=== PATIENT | female | born 1945 | race Caucasian/White ===

== ENCOUNTER 2018-10-23 13:15 | Inpatient (IN) | payer MEDICARE ==
[2018-10-23] VITALS (316 sets, daily range): BP systolic 94–116; BP diastolic 67–69; PULSE 114–131; TEMP 97.4–98.3; O2SAT 88–100
[~2018-10-23] VITALS: Ht 154.9 cm; Wt 43.0 kg
[~2018-10-23 13:15] MED LIST: 00186-0370-20 IH; HCTZ 25MG TAB25 MG PO; PRINIVIL20 MG PO; PRINZIDE 25 MG-1 TAB PO; RT SPIRIVA18 MCG IH; VENTOLIN0.09 MG IH
[2018-10-23 13:32] LABS: BASO # 0.1 (0.0-0.2); BASO % 0.4 % (0.0-2.0); EOS # 0.1 (0.0-0.7); GRAN # 8.7 (1.4-6.5); GRAN % 70.4 % (42.2-75.2); HEMATOCRIT 39.9 % (37.0-47.0); HEMOGLOBIN 12.4 g/dl (12.5-16.0); LYMPH # 2.8 (1.2-3.4); LYMPH % 22.2 % (20.0-51.0); MEAN CELL VOLUME 99 fl (80.0-100.0); MEAN CORPUSCULAR HEMOGLOBIN 31 pg (27.0-31.0); MEAN CORPUSCULAR HGB CONC 31 g/dl (33.0-37.0); MEAN PLATELET VOLUME 9.8 fl (7.4-10.4); MONO # 0.7 (0.1-0.6); MONO % 5.3 % (1.7-9.3); PLATELET COUNT 457 K/mm3 (130-400); RED BLOOD COUNT 4.04 M/mm3 (4.10-5.30); REDCELL DISTRIBUTION WIDTH-CV 13.2 % (11.5-14.5)
[2018-10-23 13:44] LABS: ALBUMIN 3.8 gm/dL (3.5-5.0); BILIRUBIN,TOTAL 0.3 mg/dL (0.0-1.0); CREATININE, serum 0.76 mg/dL (0.52-1.25); MAGNESIUM 1.8 mg/dL (1.6-2.3); POTASSIUM 4.8 mmol/L (3.4-5.0); TOTAL PROTEIN 6.9 gm/dL (6.4-8.2)
[2018-10-23 14:03] LABS: TROPONIN-I 0.115 ng/mL (0.000-0.035)
[2018-10-23] MEDS ORDERED: ATIVAN 0.50.5 MG/TAB PO (14:57)
[2018-10-23 15:00] LABS: ARTERIAL BLD GAS O2 SATURATION 96.4 % (92-100); ARTERIAL BLD GAS TCO2 CT 29.2; ARTERIAL BLOOD GAS HCO3 27.6 meq/L (22-26); ARTERIAL BLOOD GAS PCO2 52.3 mmHg (35-45); ARTERIAL BLOOD GAS PO2 93.3 mmHg (80-100); ARTERIAL BLOOD GAS pH 7.34 (7.35-7.45)
--- NOTE | 2018-10-23 16:00 | NUR ---
Patient arrives to ICU room 5 at approx 1530. She has labored pursed lip breathing. Lung sounds diminished. Left chest tube in place. Patient settled in bed and oriented to room. Call Light within reach. Dr. Brady here to see her.
--- NOTE | 2018-10-23 18:11 | NUR ---
UPDATE GIVEN TO SONSUHA. PLAN OF CARE REVIEWED. QUESTIONS ANSWERED.
--- NOTE | 2018-10-23 19:15 | NUR ---
Bedside report received from LUIS F Foster. Chest tube site assessed and reviewed. Transfer of care at this time.
--- NOTE | 2018-10-23 19:25 | NUR ---
REPORT GIVEN TO LUIS F PINEDA. PLAN OF CARE DISCUSSED. CARE TURNED OVER AT THIS TIME.
--- NOTE | 2018-10-23 20:00 | NUR ---
Assessment complete at this time. Assessment reveals diminished lung sounds as well as some small amount of subcutaneous emphysema posterior to the left chest to and around the chest tube site. Patient has complaints of pain rated 4/10 at the site, but is not requesting pain medications at this time. Patient was unable to eat her soup or crackers due to shaking of her hands, was able to drink some broth and drank all of her boost supplement. Patient appears anxious and asks lots of questions. Answered all of her questions to the best of my knowledge. Provided warm blankets for comfort. No further needs at this time. Will continue to monitor. Call light within reach.
--- NOTE | 2018-10-23 20:40 | NUR ---
Patient has complaints of sudden onset of nausea after having inhlaer from RT. Provided basin and zofran. After a few minutes nausea subsided. Patient said she had a similar instance this morning around 11am. Patient has no other needs at this time. Will continue to monitor. Call light within reach as well as basin.
--- NOTE | 2018-10-23 22:35 | NUR ---
Patient becomes nauseated again at this time. She dry heaves for several minutes with no emesis. After a few minutes symptoms subside and she is no longer nauseated. She appears to become nauseous with movement of the HOB up. Dentures and partials removed and cleaned. Left in denture cup on the counter. Patient says she is not having any pain at this time, only mild discomfort at the chest tube site. No other needs at this time. Will continue to monitor. Call light within reach.
[2018-10-24] VITALS (481 sets, daily range): BP systolic 100–122; BP diastolic 53–72; PULSE 92–108; TEMP 97.4–98.3; O2SAT 65–100
--- NOTE | 2018-10-24 | NUR ---
Patient resting in bed at this time. No shortness of breath or distress at this time. Complaints of mild pain at the chest tube insertion site, but does not want pain meds for it right now. Patient has not had anymore nausea since the last episode. Patient has no further needs at this time. Will continue to monitor. Call light within reach.
--- NOTE | 2018-10-24 01:18 | NUR ---
Patient had another sudden onset of nausea with dry heaves. No emesis produced. Nausea passed on its own after a few minutes. Patient states she isnt having any pain and is only having an intermittent headache. Assisted with sips of water. Repositioned for comfort. Will continue to monitor. Call light within reach.
[2018-10-24 05:11] LABS: GRAN # 7.7 (1.4-6.5); GRAN % 92.9 % (42.2-75.2); LYMPH # 0.4 (1.2-3.4); LYMPH % 4.7 % (20.0-51.0); MEAN CELL VOLUME 96 fl (80.0-100.0); MEAN CORPUSCULAR HGB CONC 32 g/dl (33.0-37.0); MEAN PLATELET VOLUME 9.5 fl (7.4-10.4); MONO # 0.2 (0.1-0.6); MONO % 1.8 % (1.7-9.3); RED BLOOD COUNT 3.34 M/mm3 (4.10-5.30); REDCELL DISTRIBUTION WIDTH-CV 13.3 % (11.5-14.5)
[2018-10-24 05:15] LABS: HEMATOCRIT 32.1 % (37.0-47.0); HEMOGLOBIN 10.4 g/dl (12.5-16.0); MEAN CORPUSCULAR HEMOGLOBIN 31 pg (27.0-31.0); PLATELET COUNT 288 K/mm3 (130-400)
[2018-10-24 05:24] LABS: ALBUMIN 3.1 gm/dL (3.5-5.0); BILIRUBIN,TOTAL 0.3 mg/dL (0.0-1.0); CALCIUM 9.1 mg/dL (8.4-10.2); CREATININE, serum 0.75 mg/dL (0.52-1.25); POTASSIUM 5.3 mmol/L (3.4-5.0); TOTAL PROTEIN 5.7 gm/dL (6.4-8.2)
[2018-10-24 05:37] LABS: BILIRUBIN UNCONJUGATED 0.2 mg/dL (0.0-1.1)
[2018-10-24 05:39] LABS: BILIRUBIN,DIRECT 0.2 mg/dL (0.0-0.4)
[2018-10-24 05:41] LABS: TROPONIN-I 1.46 ng/mL (0.000-0.035)
[2018-10-24 05:54] LABS: TSH w REFLEX 0.478 uIU/mL (0.465-4.680)
[2018-10-24 05:56] LABS: ANISOCYTOSIS 1+; BAND 14 % (0-10); HYPOCHROMIA 1+; LYMPHOCYTE 5 % (20.0-51.0); NEUTROPHILS 80 % (42.0-75.2); PLATELET ESTIMATE NORMAL (NORMAL); POIKILOCYTOSIS 1+
--- NOTE | 2018-10-24 07:18 | NUR ---
Bedside report given to LUIS F Hernandez and LUIS F Mitchell.
--- NOTE | 2018-10-24 07:20 | NUR ---
examined patient. Removed patient from chest tube suction. Answered patients questions. Will continue to monitor patients condition throughout shift.
--- NOTE | 2018-10-24 07:25 | NUR ---
Received bedside report from LUIS F Donahue. Patient was awake sitting in bed. Fluids varified. Chest tube site examined. Will continue to monitor patient.
--- NOTE | 2018-10-24 08:50 | NUR ---
Dr. Jhaveri visited with patient. Discussed the risk of developing another tension pneumo. Answered patiens questions. Will continue to monitor patient.
--- NOTE | 2018-10-24 09:36 | NUR ---
Initial visit; Patient thanked Filter Plant Operator for looking in on her and offering prayer and God's blessings.
[2018-10-24 10:06] LABS: ARTERIAL BLD GAS O2 SATURATION 93.9 % (92-100); ARTERIAL BLD GAS TCO2 CT 29.7; ARTERIAL BLOOD GAS BASE EXCESS 3.8 (-2-2); ARTERIAL BLOOD GAS HCO3 28.4 meq/L (22-26); ARTERIAL BLOOD GAS PCO2 42.8 mmHg (35-45); ARTERIAL BLOOD GAS PO2 68.4 mmHg (80-100); ARTERIAL BLOOD GAS pH 7.44 (7.35-7.45)
--- NOTE | 2018-10-24 10:26 | NUR ---
SW attended clinical rounds. The patient is to transfer up to the medical floor today, 10/24. CHELSI then followed up with the patient and patient's nephew, Topher. The patient lives alone in [place]. She states that her son, Dagoberto, lives in [place]. She reports needing assistance with bathing and has a walker and home oxygen through [employer]. She reports having services through [facility] and that they help her with bathing. SW contacted Omkar at [facility] and confirmed that the patient has private duty care services through them. The patient's PCP is Dr. Michael Molina and she receives her medications by delivery through [facility]. She reports no difficulties obtaining her meds. The patient's nephew, Topher, provided CHELSI with a copy of the patient's DPOA-HC, Living Will, and DNR. SW placed the copies in the patient's chart. The patient reports that at this time, she does not feel comfortable returning home. She reports that she would like to discuss options with her son when he arrives from [place]. PT/OT have been ordered. SW to continue to follow.
--- NOTE | 2018-10-24 13:17 | NUR ---
CALLED AND GAVE REPORT TO LUIS F BATEMAN.
--- NOTE | 2018-10-24 13:30 | NUR ---
TRANSFERED PATIENT TO SURGICAL ROOM. PATIENT HAD ALL BELONGINGS. PATIENT WAS TRANSFERED VIA SURGICAL BED.
--- NOTE | 2018-10-24 14:00 | NUR ---
Patient arrived via bed from ICU. She is resting comfortably at this time. Dressing to chest tube intact. The heimlich is hooked up to a drainage container. NO drainage noted. Oriented patient to room. No questions verbalized. No other changes at this time. Call light within reach.
[2018-10-24 14:49] LABS: CALCIUM 9.4 mg/dL (8.4-10.2); CREATININE, serum 0.76 mg/dL (0.52-1.25); POTASSIUM 4.9 mmol/L (3.4-5.0)
[2018-10-24 17:44] LABS: INR 0.9 (0.8-3.0); PROTHROMBIN TIME 10.6 SECONDS (9.7-12.8)
[2018-10-24 17:48] LABS: CALCIUM 9.4 mg/dL (8.4-10.2); CREATININE, serum 0.78 mg/dL (0.52-1.25); POTASSIUM 4.6 mmol/L (3.4-5.0)
--- NOTE | 2018-10-24 18:30 | NUR ---
Patient assisted to bedside commode. Dyspnea with exertion. Allyven foam placed to spine & coccyx. Reddness noted.
--- NOTE | 2018-10-24 19:00 | NUR ---
Patient was able to get up to the BSC with staff assitance. Foam pads placed to her back and coccyx area to help keep her from getting break down. Placed an air mattress over her bed as well. Patient needs encouragement to eat more, she had some ensure for dinner but did not want to eat. No other changes at this time. Call light within reach.
--- NOTE | 2018-10-24 20:15 | NUR ---
Pt resting in bed watching TV, some C/O pain, left Pt call light in reach, bed in lowest position.
[2018-10-25] VITALS (11 sets, daily range): BP systolic 114–150; BP diastolic 55–98; PULSE 86–109; TEMP 97.5–98.3
--- NOTE | 2018-10-25 05:33 | NUR ---
Pt has been sleeping during the night, has some C/O pain but does not want medication. VS have been stable.
[2018-10-25 05:58] LABS: BASO % 0.1 % (0.0-2.0); GRAN # 12.6 (1.4-6.5); LYMPH # 0.6 (1.2-3.4); LYMPH % 4.4 % (20.0-51.0); MEAN CELL VOLUME 97 fl (80.0-100.0); MEAN CORPUSCULAR HGB CONC 32 g/dl (33.0-37.0); MEAN PLATELET VOLUME 10.8 fl (7.4-10.4); PLATELET COUNT 288 K/mm3 (130-400); RED BLOOD COUNT 3.17 M/mm3 (4.10-5.30); REDCELL DISTRIBUTION WIDTH-CV 13.4 % (11.5-14.5)
[2018-10-25 06:11] LABS: CALCIUM 9.1 mg/dL (8.4-10.2); CREATININE, serum 0.76 mg/dL (0.52-1.25); HEMATOCRIT 30.8 % (37.0-47.0); HEMOGLOBIN 9.8 g/dl (12.5-16.0); MEAN CORPUSCULAR HEMOGLOBIN 31 pg (27.0-31.0); POTASSIUM 4.6 mmol/L (3.4-5.0)
--- NOTE | 2018-10-25 07:00 | NUR ---
Report on to LUIS F Townsend. Pt resting in bed. VS obtained BP 123/93, diminished breath sounds left lobes. Stridor present in right lobes, reported findings to LUIS F Townsend. Pt reports of being anxious. Chest tube to drainage, site CDI, O2 administered via nasal cannula at 2L.
--- NOTE | 2018-10-25 10:50 | NUR ---
Patient is going down for her DOYLE procedure. Report given to Sherly, the radiology nurse. Patient was transferred via the bed. No complaints of pain. She was given ativan earlier for anxiety. Her chest tube was taken off of suction for the transfer. No other changes at this time. Chart off the floor with patient. Consent signed and on the chart.
--- NOTE | 2018-10-25 11:00 | NUR ---
Pt. left unit to get DOYLE.
--- NOTE | 2018-10-25 11:27 | NUR ---
SW attended clinical rounds to discuss discharge planning. SW informed patient that post acute rehab has been recommended. SW inquired about patient choices. Patient's 1st choice is [facility] and 2nd choice is [facility]. SW will fax referral to both places.
--- NOTE | 2018-10-25 11:32 | NUR ---
Report off to LUIS F Townsend
--- NOTE | 2018-10-25 14:43 | NUR ---
SW spoke with Naila from [facility]. Patient has been accepted for skilled.
--- NOTE | 2018-10-25 18:30 | NUR ---
Patient has been doing ok today. Minimal complaints of pain. She stated she is having some anxiety and increased pain. Offered some ultram at this time but she refused. She did want her ativan at this time. Chest tube continues to hooked up to suction. Oxygen on at 2L/min per NC. She also requested a breathing treatment. No other changes at this time. Call light within reach.
--- NOTE | 2018-10-25 21:33 | NUR ---
Shift assessment complete. Patient ambulated to BSC with assist x1. C/o 5/10 pain, prn pain medication given. Chest tube dressing dry/.intact, low-continuous suction. Dentures brushed per pt request. Denies further needs, will continue to assess.
[2018-10-26] VITALS (7 sets, daily range): BP systolic 102–137; BP diastolic 49–58; PULSE 76–106; TEMP 96.8–98.3
[2018-10-26 06:54] LABS: BASO % 0.1 % (0.0-2.0); GRAN # 8.3 (1.4-6.5); GRAN % 87.4 % (42.2-75.2); LYMPH # 0.7 (1.2-3.4); LYMPH % 7.5 % (20.0-51.0); MEAN CELL VOLUME 96 fl (80.0-100.0); MEAN CORPUSCULAR HEMOGLOBIN 31 pg (27.0-31.0); MEAN CORPUSCULAR HGB CONC 32 g/dl (33.0-37.0); MONO # 0.4 (0.1-0.6); MONO % 4.7 % (1.7-9.3); PLATELET COUNT 272 K/mm3 (130-400); RED BLOOD COUNT 3.26 M/mm3 (4.10-5.30); REDCELL DISTRIBUTION WIDTH-CV 13.5 % (11.5-14.5)
[2018-10-26 06:58] LABS: HEMATOCRIT 31.3 % (37.0-47.0)
--- NOTE | 2018-10-26 07:00 | NUR ---
Report on to LUIS F Ordoñez.
[2018-10-26 07:11] LABS: CALCIUM 8.8 mg/dL (8.4-10.2); CREATININE, serum 0.72 mg/dL (0.52-1.25); POTASSIUM 4.6 mmol/L (3.4-5.0)
--- NOTE | 2018-10-26 07:15 | NUR ---
Pt. in bed resting, 02 administered via nasal cannula @ 1L, states she feels like she can't breathe, O2 sat @ 97%. Chest tube on low continuous suction. Pt c/o nausea. Shift assessment completed, stridor in right upper lobe, crepitis present in back upper flank. Chest tube site CDI. SCD's on.
--- NOTE | 2018-10-26 08:00 | NUR ---
Assessed pt.'s nausea after been given Ativan, still feeling nauseous, offered a Pepsi to see if carbonation will help.
--- NOTE | 2018-10-26 08:15 | NUR ---
Patient in bed resting. Alert and oriented x 2. Shift assessment complete. Patient states mild nausea this AM. Left chest tube to continuous suction with serosanguinous drainage present in container. Gauze and foam dressing to site is CDI. Denies pain at this time. Denies further needs at this time.
--- NOTE | 2018-10-26 11:26 | NUR ---
Pt. transferred to commode, bed bath given while up, tranferred to chair, resting. Call light in reach. Report off to LUIS F Ordoñez.
--- NOTE | 2018-10-26 18:23 | NUR ---
Patient in bed resting. Has been up in recliner most of the day. x1 assist when out of bed. Denies pain at this time. Denies further needs at this time. Will report off to cut order hand.
--- NOTE | 2018-10-26 22:00 | NUR ---
PT HAD C/O NAUSEA AND FEELING AXIOUS AT HS, REQUESTED SOME MEDICAITONS, THIS NURSE PROVIDED PT WITH PRN ATIVAN AND ZOFRAN. PT HAS ASKED THIS NURSE ABOUT GETTING A BREATHING TREATMENT, CALLED RT, RT CAME DOWN SHORTLY AFTER AND PROVIDED PT WITH A BREATHING TX. NO OTHER ISSUES OR CONSERNS VOICED AT THIS TIME.
[2018-10-27] VITALS (370 sets, daily range): BP systolic 94–184; BP diastolic 51–99; PULSE 82–154; TEMP 97.3–98.1; O2SAT 84–100
--- NOTE | 2018-10-27 | NUR ---
THE SUCTION ON PT CHEST TUBE WAS TURNED OFF BY THIS NURSE PER DOCTORS ORDER. MINIMAL RED COLORED DRAINAGE NOTED IN CHEST TUBE CHAMBER.
[2018-10-27 05:40] LABS: GRAN % 80.7 % (42.2-75.2); LYMPH # 0.9 (1.2-3.4); LYMPH % 12.3 % (20.0-51.0); MEAN CELL VOLUME 95 fl (80.0-100.0); MEAN CORPUSCULAR HGB CONC 32 g/dl (33.0-37.0); MEAN PLATELET VOLUME 10.5 fl (7.4-10.4); MONO # 0.5 (0.1-0.6); MONO % 6.7 % (1.7-9.3); PLATELET COUNT 256 K/mm3 (130-400); RED BLOOD COUNT 3.25 M/mm3 (4.10-5.30); REDCELL DISTRIBUTION WIDTH-CV 13.3 % (11.5-14.5)
[2018-10-27 05:43] LABS: HEMATOCRIT 30.7 % (37.0-47.0); HEMOGLOBIN 9.9 g/dl (12.5-16.0); MEAN CORPUSCULAR HEMOGLOBIN 30 pg (27.0-31.0)
[2018-10-27 05:45] LABS: CALCIUM 8.6 mg/dL (8.4-10.2); CREATININE, serum 0.7 mg/dL (0.52-1.25); POTASSIUM 4.1 mmol/L (3.4-5.0)
--- NOTE | 2018-10-27 06:24 | NUR ---
PT HAD C/O ANXIETY THIS AM AND REQUESTED AN ATIVAN. MED PROVIDED. NO OTHER ISSUES OR CONSERNS VOICED
--- NOTE | 2018-10-27 07:23 | NUR ---
Call from Dr. Rosas to restart suction on chest tube.
--- NOTE | 2018-10-27 07:46 | NUR ---
Pt is lying in bed looking at menu. IV running at 50ml/hr of 0.45% NS and clean, dry, and intact with no signs of inflammation or redness. Chest tube on and is clean, dry, and intact. Assessment as charted. PT reports no pain at this time.
--- NOTE | 2018-10-27 08:43 | NUR ---
Patient in bed eating breakfast. Alert and oriented x3. Shift assessment complete. IV fluids infusing via pump to right forarm. Left chest tube to suction, gauze and foam dressing CDI. Mepilex to midthoracic back and to sacral area. Lung bases diminished. Denies further needs at this time.
--- NOTE | 2018-10-27 10:59 | NUR ---
Hospitalist and care team in to see patient.
--- NOTE | 2018-10-27 11:08 | NUR ---
SW and SW student attended clinical rounds. The patient is to be here over the weekend. A palliative care consult has been ordered. SW contacted and faxed updates to Michelle at [facility]. SW to continue to follow.
--- NOTE | 2018-10-27 12:20 | NUR ---
First visit from the advanced practice rn. No needs right now.
--- NOTE | 2018-10-27 13:33 | NUR ---
Pt was resting in bed this afternoon. No change in status. Pt refused lunch stating, "I had breakfast, so I am not hungry." Pt lungs were diminished in bilateral lower lobes, and clear to ausculation on bilateral upper lobes.
--- NOTE | 2018-10-27 14:47 | NUR ---
Palliative care nurse met with pt and her son to discuss goals of care. Pt would like to return home if her problem resolves over the weekend. She is aware that this may not occur and that returning home may not be an option. She is familiar with hospice and the [facility] as well as nursing homes for rehab or residential care. Support provided.
--- NOTE | 2018-10-27 16:19 | NUR ---
Patient sitting up in bed leaning forward. States she is having difficulty breathing. Oxygen saturation intially 92 on 2l via NC. HR 100's, states she is feeling anxious. Called respiratory for breathing treatment, administered PRN ativan for anxiety. Rechecked on patient shortly after administering medication. States she is still not feeling well. Patients HR increased to 130's, checked VS; BP 184/99, Oxygen saturations at 82. Decreased breath sounds to left lung. Recieved call from TELE patients HR increased to 150's. Dr. Raman in room, EKG, CXR ordered. Report called to ICU, patient is transfering to ICU room 4. Notified Dr. Rosas or patient status.
--- NOTE | 2018-10-27 16:20 | NUR ---
Patient arrives to ICU. Patient placed on monitors, bipap, tele, call light within reach. Patient oriented to room. Son, Nikolay, present. Care assumed at this time.
[2018-10-27 16:21] LABS: ARTERIAL BLD GAS O2 SATURATION 88.5 % (92-100); ARTERIAL BLD GAS TCO2 CT 29.8; ARTERIAL BLOOD GAS HCO3 28.2 meq/L (22-26); ARTERIAL BLOOD GAS PCO2 50.6 mmHg (35-45); ARTERIAL BLOOD GAS PO2 59.9 mmHg (80-100); ARTERIAL BLOOD GAS pH 7.36 (7.35-7.45)
--- NOTE | 2018-10-27 19:31 | NUR ---
shift hand off given to LUIS F Gamble
--- NOTE | 2018-10-27 20:00 | NUR ---
PT SOB AND REFUSES MORPHINE TO RELIEVE AIR HUNGER. PT TACHYCARDIC. MD IN PT ROOM WITH FAMILY DISCUSSING PT CONDITION AND OPTIONS. TWO MEPILEX DRESSINGS ON PT: ONE COCCYX COVERING A SMALL PINK ABRAIDED SORE APPROX 1/4" AND A SECOND ON MID BACK, BUT NOT COVERING ANY WOUND. HOWVER, THE GENERAL AREA OF THE SPINE WAS SLIGHTLY REDDENED AND MEPILEX WAS REPLACED FOR COMFORT DUE TO PT STATED IT HELPED PAD HER BACK. CHEST TUBE ON PT LEFT FLANK CONNECTED TO SUCTION. PT ALERT AND ORIENTED. PT ON 3L OM TO ALLOW FOR COMMUNICATION WITH FAMILY. PT REFUSES TO WEAR BIPAP AT PRESENT TIME.
[2018-10-28] VITALS (337 sets, daily range): BP systolic 96–129; BP diastolic 51–64; PULSE 74–111; TEMP 97.5–102.5; O2SAT 92–100
--- NOTE | 2018-10-28 | NUR ---
PT HAS RELIEF REGARDING SOB. PT SR HR IN 80'S, RESPIRATIONS NORMAL RANGE. PT HAS LEFT FA IV SITE THAT IS CAUSING PAIN AND STATES "I CAN'T TAKE IT". SITE ASSESSED, NO REDNESS. IV WRAPPED IN COBAN TO HELP RELIEVE DISCOMFORT. CHEST TUBE INSERSION SITE ASSESSED - DRESSING CLEAN/DRY/INTACT.
[2018-10-28 05:40] LABS: EOS % 0.1 % (0-4.0); GRAN # 6.9 (1.4-6.5); GRAN % 77.6 % (42.2-75.2); LYMPH # 1.3 (1.2-3.4); LYMPH % 15.1 % (20.0-51.0); MEAN CELL VOLUME 95 fl (80.0-100.0); MEAN CORPUSCULAR HGB CONC 32 g/dl (33.0-37.0); MEAN PLATELET VOLUME 10.9 fl (7.4-10.4); MONO # 0.6 (0.1-0.6); MONO % 6.9 % (1.7-9.3); PLATELET COUNT 247 K/mm3 (130-400); RED BLOOD COUNT 3.07 M/mm3 (4.10-5.30); REDCELL DISTRIBUTION WIDTH-CV 13.5 % (11.5-14.5)
[2018-10-28 05:42] LABS: HEMATOCRIT 29.3 % (37.0-47.0); HEMOGLOBIN 9.4 g/dl (12.5-16.0); MEAN CORPUSCULAR HEMOGLOBIN 31 pg (27.0-31.0)
[2018-10-28 06:00] LABS: CALCIUM 8.5 mg/dL (8.4-10.2); CREATININE, serum 0.72 mg/dL (0.52-1.25); POTASSIUM 4.1 mmol/L (3.4-5.0)
--- NOTE | 2018-10-28 09:00 | NUR ---
Follow-up visit: Patient and her son thanked Utility Service Worker for offering God's blessings to Sabina. Utility Service Worker assured Sabina she is available to pray with her at any time.
--- NOTE | 2018-10-28 10:59 | NUR ---
SW attended clinical rounds. The patient's family would like to keep the patient comfortable through the weekend and would like to see how the patient does after removing the chest tube on Wednesday, 10/31. Depending on how the patient does after, the patient's family would consider hospice. The patient is to be transferred up to the floor today, 10/28. SW to contact and fax updates to Michelle at [facility] and continue to follow.
--- NOTE | 2018-10-28 12:45 | NUR ---
Report given to lucy Prakash
--- NOTE | 2018-10-28 14:20 | NUR ---
REPORT GIVEN TO LUIS F HUBBARD ON SURGICAL. PLAN OF CARE DISCUSSED. PATIENT WILL GO TO ROOM 344.
--- NOTE | 2018-10-28 16:55 | NUR ---
REPORT GIVEN TO LUIS F JAIMES.
--- NOTE | 2018-10-28 18:27 | NUR ---
Patient resting in bed, Alert and oriented x 3, family at bedside. Chest tube connected to suction. Patient on 3L via NC. Reed to dependent drainage with clear yellow urine present. Denies pain at this time. Denies further needs at this time. Will report off to mini shifter.
--- NOTE | 2018-10-28 22:43 | NUR ---
recieved report from LUIS F Manning. pt sleeping in bed A+Ox4. pt vitals stable. 3L via NC. chest tube connected to suction. vargas draining independently. no pain at this time. reports no needs. call light in reach.
[2018-10-29] VITALS (7 sets, daily range): BP systolic 99–139; BP diastolic 53–68; PULSE 83–124; TEMP 97.5–98.5
--- NOTE | 2018-10-29 00:27 | NUR ---
PT O2 SAT AT 98% ON 3L DECREASED PT O2 TO 2L SAT NOW 97%. PT REPORTS WEARING 2L AT NIGHT WHILE AT HOME. NO NEEDS AT THIS TIME. CALL LIGHT IN REACH
--- NOTE | 2018-10-29 05:34 | NUR ---
pt had an uneventful night. pt slept throughout night. no C/O pain. chest tube on 20cm suction. vargas draining independently, no kinks. pt on 3L via NC- sats above 92% no needs at this time. call light in reach
--- NOTE | 2018-10-29 09:01 | NUR ---
Patient resting in bed and eating breakfast at this time. Patient is alert and oriented, answers questions appropriately. Water seal chest tube to 20cm suction in left chest remains intact. Patient breathing normally with no increased effort. Patient wearing O2 at 2L via NC. Reed remains in place draining clear, pale yellow urine. IVF continue to infuse per order. Patient denies pain or nausea at this time, did request PRN ativan for anxiety this morning, PRN given per order. Denies further needs at this time, call light within reach.
--- NOTE | 2018-10-29 11:01 | NUR ---
Visited and prayed with the patient.
--- NOTE | 2018-10-29 19:17 | NUR ---
Patient has rested in bed during this shift. Chest tube to left chest to 20cm waterseal per order. Reed remains in place draining pale yellow urine. Patient has had good oral intake today, no complaints of nausea. Patient has had no complaints if SOB or dispnea, O2 at 2L via NC. Patient denies further needs at this time, call light within reach.
--- NOTE | 2018-10-29 23:47 | NUR ---
PT RESTING IN BED A+OX4. REPORTS NO PAIN. CHEST TUBE DCI. STRAW COLORED DRAINAGE VIA CHEST TUBE. PT ON BIPAP/CPAP. NO NEEDS AT THIS TIME CALL LIGHT IN REACH
[2018-10-30 04:51] VITALS: BP 109/60; PULSE 107; TEMP 97.2
--- NOTE | 2018-10-30 06:04 | NUR ---
pt had an uneventful night. slept throughout night with bipap on. pt reports no pain. some anxiety reported when family is present. reports increased soa. sats stable. on 2L via NC when not on BIPAP. wore BIPAP [id number]. vargas draining independently. no kinks. no BM tonight. chest tube had 10 ml of drainage. no needs at this time. call light in reach.
--- NOTE | 2018-10-30 06:51 | NUR ---
PT REPORTS FEELING ANXIOUS- ATIVAN GIVEN. NO NEEDS AT THIS ITME
--- NOTE | 2018-10-30 06:56 | NUR ---
PT REPORTS FEELING NAUSEOUS- PRN ZOFRAN GIVEN
--- NOTE | 2018-10-30 07:03 | NUR ---
report given to LUIS F Diaz. pt reports no needs
[2018-10-30 09:15] VITALS: BP 116/54; PULSE 97; TEMP 97.4
[2018-10-30 13:47] VITALS: BP 127/58; PULSE 94; TEMP 98.3
[2018-10-30 16:26] VITALS: BP 119/49; PULSE 99; TEMP 97.9
--- NOTE | 2018-10-30 20:00 | NUR ---
Initial shift assessment done- states pain 5/10 to left chest tube site, would like Morphine and Zofran at this time- IV fluids of NS at 50cc/hr, repositioned-
[2018-10-30 20:17] VITALS: BP 116/57; PULSE 94; TEMP 97.5
[2018-10-30 23:37] VITALS: BP 111/47; PULSE 81; TEMP 97.5
[2018-10-31 03:57] VITALS: BP 110/56; PULSE 81; TEMP 97.1
--- NOTE | 2018-10-31 06:21 | NUR ---
Quiet night-did receive Morphine for pain only at the beginning of the shift- denies need for pain meds now. CT to 20cm suction- had 20cc serous fluid out this shift. VSS. Had 1100cc out Reed this shift
[2018-10-31 06:34] LABS: BASO % 0.3 % (0.0-2.0); EOS # 0.4 (0.0-0.7); EOS % 3.2 % (0-4.0); GRAN # 8.9 (1.4-6.5); GRAN % 78.6 % (42.2-75.2); HEMATOCRIT 30.7 % (37.0-47.0); HEMOGLOBIN 9.7 g/dl (12.5-16.0); LYMPH # 1.1 (1.2-3.4); LYMPH % 10.1 % (20.0-51.0); MEAN CELL VOLUME 97 fl (80.0-100.0); MEAN CORPUSCULAR HEMOGLOBIN 31 pg (27.0-31.0); MEAN CORPUSCULAR HGB CONC 32 g/dl (33.0-37.0); MEAN PLATELET VOLUME 10.9 fl (7.4-10.4); MONO # 0.8 (0.1-0.6); MONO % 7.4 % (1.7-9.3); PLATELET COUNT 236 K/mm3 (130-400); RED BLOOD COUNT 3.17 M/mm3 (4.10-5.30)
[2018-10-31 06:46] LABS: POTASSIUM 4.1 mmol/L (3.4-5.0)
[2018-10-31 06:47] LABS: CALCIUM 8.8 mg/dL (8.4-10.2); CREATININE, serum 0.67 mg/dL (0.52-1.25)
[2018-10-31 08:02] VITALS: BP 134/60; PULSE 84; TEMP 98
--- NOTE | 2018-10-31 10:00 | NUR ---
Family and hospital staff meeting - converting care to palliative/hospice. Son states "we have all our family in town. She is ready to go. We all had a great weekend together with family in town".
[2018-10-31] MEDS ORDERED: ROXANOL 20MG20 MG/ML PO (10:34)
--- NOTE | 2018-10-31 10:56 | NUR ---
Met with son, patient and her family members at bedside. Initially they were anticipating that her tube would be removed and would occur soon after. I contacted Dr Dunbar who came and talked with pt and family. [facility] would not require the removal of the chest tube and this would be family and patient's preference. Contact with referral has been made to [facility], which family is very familiar with and we are awaiting their response. Verified that Dr Molina is her PCP with son. Dr Kraus also spoke with family and they are all in agreement that keeping chest tube in place is desired and follows their desire for comfort. i have advised social work job titles, Vandana, nicole Kraus and Manjinder and primary nurse, Santana of these actions.
[2018-10-31] MEDS ORDERED: DULCOLAX S10 MG/SUPP RC (11:23)
[2018-10-31] MEDS ORDERED: SENOKOT S 50 MG1 TAB PO (11:23)
[2018-10-31] MEDS ORDERED: TRANSDERM-0.5 MG/21 TD (11:24)
[2018-10-31] MEDS ORDERED: ZOFRAN ODT4 MG PO (11:24)
[2018-10-31] MEDS ORDERED: PHENERGAN 25 TA25 MG PO (11:25)
[2018-10-31] MEDS ORDERED: ATIVAN 1MG T1 MG/TAB PO (11:26)
[2018-10-31 11:31] VITALS: BP 116/54; PULSE 95; TEMP 98.2
--- NOTE | 2018-10-31 12:11 | NUR ---
Advised per Gloria at [facility] that they are still waiting to hear from Dr Bernardo and won't be able to accept pt until tomorrow morning. Dominic and staff advised.
--- NOTE | 2018-10-31 16:01 | NUR ---
INT to LFA infiltrated. Primary nurse notified.
--- NOTE | 2018-10-31 21:28 | NUR ---
Shift assessment complete. Patient in bed, turned to right side, pillow under back. Chest tube intact. Patient denies pain, nausea, and anxiety. Will continue to monitor.
--- NOTE | 2018-10-31 23:33 | NUR ---
Patient lying in bed, sleeping. Appears comfortable. Will continue to assess.
--- NOTE | 2018-11-01 03:35 | NUR ---
Patient in bed, sleeping. Appears comfortable. Will continue to assess.
--- NOTE | 2018-11-01 07:01 | NUR ---
report from Ashlyn KERNS.
[2018-11-01 07:54] VITALS: BP 128/48; PULSE 91; TEMP 97.8
--- NOTE | 2018-11-01 08:38 | NUR ---
SW informed by pallative care nurse that patient has been accepted to [facility] hospice house today. SW will set up ambulance transfer and time with the hospice house.
--- NOTE | 2018-11-01 09:20 | NUR ---
Spoke to Tonio Rebollar Rn at [facility]. She is requesting orders, scripts for all meds to be sent to [facility] and a discharge time when available. This was relayed to Jahaira LEE who will be completing orders.
--- NOTE | 2018-11-01 11:57 | NUR ---
DR. HUDSON AND CARE TEAM INCLUDING STACEY TINEO MET WITH PATIENT AND FAMILY. SUCTION TURNED OFF.
--- NOTE | 2018-11-01 11:59 | NUR ---
ROXINOL MEDICATION OFFERED AND PT REFUSED AT THIS TIME.
--- NOTE | 2018-11-01 13:55 | NUR ---
pt transfered to hospice house via EMS.
--- NOTE | 2018-11-01 14:27 | NUR ---
SW met with patient and son to present IM and verbally discuss the contents. Patient is agreeable and asked her son to sign. Copy denied and original on chart. Discharge orders were faxed and transport via [facility] scheduled for 1:30. Nurse informed of plan. Patient dc today to [facility] via EMS. No other discharge needs at this time.
== END 2018-11-01 13:57 | disposition hospice, inpatient (51) | DRG 199 ==
LOC: COL.ER 13:15 → ICU 14:59 → SURG 10-24 13:44 → ICU 10-27 16:16 → SURG 10-28 11:50
PROVIDERS: Emergency Medicine; Family Medicine; Hospitalist; Internal Medicine Cardiovascular Disease; Physician Assistant; ADMIT Internal Medicine
PROC: 0W9B30Z Drainage of Left Pleural Cavity with Drainage Device, Percutaneous Approach (ICD-10-PCS; principal; 2018-10-23)
DX: J93.83 Other pneumothorax (principal); I21.A1 Myocardial infarction type 2; E43 Unspecified severe protein-calorie malnutrition; J96.02 Acute respiratory failure with hypercapnia; Z51.5 Encounter for palliative care; Z66 Do not resuscitate; J44.1 Chronic obstructive pulmonary disease with (acute) exacerbation; E87.4 Mixed disorder of acid-base balance; Z68.1 Body mass index [BMI] 19.9 or less, adult; E87.1 Hypo-osmolality and hyponatremia; R64 Cachexia; I10 Essential (primary) hypertension; F41.9 Anxiety disorder, unspecified; F17.210 Nicotine dependence, cigarettes, uncomplicated; R00.0 Tachycardia, unspecified; R73.9 Hyperglycemia, unspecified; E87.5 Hyperkalemia; E87.8 Other disorders of electrolyte and fluid balance, not elsewhere classified
CPT/HCPCS: 99223-AI; 99232-AI; 99233-AI; 99239; A7041; J1644; J1956; J2060; J2270; J2405; J2550; J2704; J2920; J2930; J3475; J7030; J7512